=== PATIENT | female | born 2000 | race Caucasian/White ===

== ENCOUNTER 2019-03-03 22:51 | Emergency (ER) | payer OTHER ==
[~2019-03-03] VITALS: Ht 157.5 cm; Wt 59.4 kg
[2019-03-03] MEDS ORDERED: PRENA1 CHEW TA1.4 MG (23:13)
[2019-03-03] MEDS ORDERED: FOLIC ACID0.4 MG (23:13)
[2019-03-04] MEDS ORDERED: CEFPROZIL500 MG PO (04:27)
== END 2019-03-04 04:41 ==
LOC: ER 22:51
DX: R10.31 Right lower quadrant pain (principal); R10.2 Pelvic and perineal pain

== ENCOUNTER 2019-04-19 14:18 | Emergency (ER) | payer OTHER ==
[~2019-04-19] VITALS: Ht 160 cm; Wt 63.0 kg
[~2019-04-19 14:18] MED LIST: CEFPROZIL500 MG PO; FOLIC ACID0.4 MG; PRENA1 CHEW TA1.4 MG
[2019-04-19] MEDS ORDERED: NITROFURANTOIN100 MG PO (19:09)
== END 2019-04-19 20:13 | disposition home or self-care (01) ==
LOC: ER 14:18
DX: O23.32 Infections of other parts of urinary tract in pregnancy, second trimester (principal); O26.892 Other specified pregnancy related conditions, second trimester; O35.3XX1 Maternal care for (suspected) damage to fetus from viral disease in mother, fetus 1; O60.02 Preterm labor without delivery, second trimester; Z34.82 Encounter for supervision of other normal pregnancy, second trimester

== ENCOUNTER 2019-09-20 07:00 | Inpatient (IN) | payer OTHER ==
[~2019-09-20] VITALS: Ht 160 cm; Wt 3.2 kg
[~2019-09-20 07:00] MED LIST changes: +IRON325 MG PO; +NITROFURANTOIN100 MG PO
== END 2019-09-23 13:38 | disposition home or self-care (01) | DRG 788 ==
LOC: OB/GYN 07:00 → O/R 07:20 → OB/GYN 12:58
PROVIDERS: ADMIT Specialist; ATTEND Specialist
PROC: 4A1HXCZ Monitoring of Products of Conception, Cardiac Rate, External Approach (ICD-10-PCS; 2019-09-20)
PROC: 10D00Z1 Extraction of Products of Conception, Low, Open Approach (ICD-10-PCS; principal; 2019-09-20 07:00)
DX: O82 Encounter for cesarean delivery without indication (principal); Z3A.39 39 weeks gestation of pregnancy; Z37.0 Single live birth

== ENCOUNTER 2019-10-29 12:12 | Emergency (ER) | payer OTHER ==
[~2019-10-29] VITALS: Ht 160 cm; Wt 67.6 kg
[2019-10-29] MEDS ORDERED: MACROBID 100 M100 MG PO (14:53)
== END 2019-10-29 15:23 | disposition home or self-care (01) ==
LOC: ER 12:12
DX: N39.0 Urinary tract infection, site not specified (principal)

== ENCOUNTER 2019-12-20 11:16 | Outpatient (CLI) | payer OTHER ==
[~2019-12-20 11:16] MED LIST changes: +MACROBID 100 M100 MG PO
== END 2019-12-20 11:19 | disposition home or self-care (01) ==
LOC: SONOGRAMA 11:16
PROVIDERS: ATTEND Pathology Anatomic Pathology & Clinical Pathology
DX: E04.1 Nontoxic single thyroid nodule (principal)

== ENCOUNTER 2020-09-30 15:29 | Emergency (ER) | payer OTHER ==
[~2020-09-30] VITALS: Ht 165.1 cm; Wt 61.2 kg
== END 2020-09-30 17:58 | disposition home or self-care (01) ==
LOC: ER 15:29
DX: N93.9 Abnormal uterine and vaginal bleeding, unspecified (principal)